=== PATIENT | female | born 1965 | race Caucasian/White ===

== ENCOUNTER 2021-12-20 23:35 | Emergency (ER) | payer OTHER ==
[~2021-12-20] VITALS: Ht 160 cm; Wt 74.0 kg
[2021-12-21 05:10] VITALS: BP 125/68
[2021-12-21] MEDS ORDERED: IBUP-2028 MT (06:17)
== END 2021-12-21 06:42 | disposition home or self-care (01) ==
LOC: ER 23:35
DX: S40.012A Contusion of left shoulder, initial encounter (principal); S16.1XXA Strain of muscle, fascia and tendon at neck level, initial encounter; S09.8XXA Other specified injuries of head, initial encounter; V49.59XA Passenger injured in collision with other motor vehicles in traffic accident, initial encounter; Y93.89 Activity, other specified; Y92.488 Other paved roadways as the place of occurrence of the external cause; M50.322 Other cervical disc degeneration at C5-C6 level; M50.323 Other cervical disc degeneration at C6-C7 level
CPT/HCPCS: 71045; 73030; 99291